=== PATIENT | male | born 1945 | race Two or more races ===

== ENCOUNTER 2021-05-26 11:47 | Emergency (ER) | payer OTHER ==
[~2021-05-26] VITALS: Ht 175.3 cm; Wt 88.0 kg
--- NOTE | 2021-05-26 12:02 | NUR ---
The patient is bibra88, from [facility], c/o low bp 88/48 on scene, IV 250ml NS infused. The patient is alert and oriented x3. In room air and denies SOB. Respiration regular and unlabored. Denies pain. Attached to the monitor. Warm blanket provided for comfort. Will continue to monitor the patient.
[2021-05-26] MEDS ORDERED: CITA40TA11 PO (12:36)
[2021-05-26] MEDS ORDERED: ROSU20TA32 PO (12:36)
[2021-05-26] MEDS ORDERED: LOSA25TA27 PO (12:36)
[2021-05-26] MEDS ORDERED: TRAZ-182 PO (12:36)
[2021-05-26] MEDS ORDERED: CARB1TAB21 PO (12:36)
--- NOTE | 2021-05-26 12:45 | NUR ---
TAKEN TO CT
--- NOTE | 2021-05-26 12:58 | NUR ---
COVID SWAB DONE AND SENT TO THE LAB
--- NOTE | 2021-05-26 12:58 | NUR ---
THE PATIENT IS BACK FROM CT
[2021-05-26 13:25] LABS: BASOPHILS % (AUTO) 0.2 % (0.0-2.0); EOSINOPHILS % (AUTO) 0.2 % (0.0-6.0); HEMATOCRIT 38 % (39-51); HEMOGLOBIN 12.9 g/dL (13.5-17.5); LYMPHOCYTES # (AUTO) 0.9 K/uL (0.8-4.8); MEAN CORPUSCULAR HGB CONC 34 g/dl (31.0-36.0); MEAN CORPUSCULAR VOLUME 92 fL (80-96); MONOCYTES % (AUTO) 6.6 % (2.0-12.0); NEUTROPHILS # (AUTO) 12.8 K/uL (1.8-8.9); PLATELET COUNT (AUTO) 365 K/uL (150-450); RED BLOOD CELL COUNT(AUTO) 4.17 MIL/uL (4.5-6.0); WHITE BLOOD COUNT (AUTO) 14.7 K/uL (4.3-11.0)
[2021-05-26 13:35] LABS: CALCIUM, SERUM 8.4 mg/dL (8.5-10.1); CARBON DIOXIDE 23 mmol/L (21-32); CHLORIDE 106 mmol/L (98-107); CREATININE 1.1 mg/dL (0.6-1.3); GLUCOSE 101 mg/dL (74-106); POTASSIUM 3.7 mmol/L (3.5-5.1); SODIUM SERUM 140 mmol/L (136-145); UREA NITROGEN, BLOOD 18 mg/dL (7-18)
[2021-05-26 13:48] LABS: ALKALINE PHOSPHATASE 85 U/L (46-116); ASPARTATE AMINOTRANSFERASE 13 U/L (15-37); BILIRUBIN,DIRECT 0.1 mg/dL (0.0-0.2); BILIRUBIN,TOTAL 0.4 mg/dL (0.2-1.0); TOTAL PROTEIN, SERUM 6.7 g/dL (6.4-8.2)
[2021-05-26 13:58] LABS: ALANINE AMINOTRANSFERASE 14 U/L (12-78)
--- NOTE | 2021-05-26 13:59 | NUR ---
FAXED CLINICALS TO [facility] [phone]
[2021-05-26] MEDS ORDERED: IV NS 0.9% 1,000 ML BAG IV ONE (14:00)
[2021-05-26] MEDS ORDERED: PIPERACILLIN /TAZOBACTAM 3.375 G in IV D5W 50 ML IV ONE (14:00)
--- NOTE | 2021-05-26 14:20 | NUR ---
DR. HERNÁNDEZ SPEAKING WITH DR. HIRSCH.
--- NOTE | 2021-05-26 14:30 | NUR ---
REFAXED COVID RESULT TO [phone] [facility] [phone]
--- NOTE | 2021-05-26 15:18 | NUR ---
PT ACCEPTED TO [facility] UNDER DR. ALVAREZ AWAITING ROOM
--- NOTE | 2021-05-26 17:21 | NUR ---
[facility] CALLED BACK. PT GOING TO [facility] ACCEPTED UNDER DR. LAURA ALVAREZ ROOM [address] PLEASE CALL [phone] WARD RN FOR REPORT. TRANSPORT IS [facility]. WILL PICKUP AT 2030
--- NOTE | 2021-05-26 18:11 | NUR ---
REPORT GIVEN TO NURSE YEUNG FROM [facility]
[2021-05-26 20:45] VITALS: BP 162/88
--- NOTE | 2021-05-26 21:26 | NUR ---
GAVE REPORT TO EMS
== END 2021-05-26 21:26 | disposition short-term general hospital (02) ==
LOC: ER 11:53
DX: R55 Syncope and collapse (principal); I95.9 Hypotension, unspecified; R79.89 Other specified abnormal findings of blood chemistry; G20 Parkinson's disease; Z86.73 Personal history of transient ischemic attack (TIA), and cerebral infarction without residual deficits; Z20.822 Contact with and (suspected) exposure to COVID-19; Z79.899 Other long term (current) drug therapy; E78.5 Hyperlipidemia, unspecified; I10 Essential (primary) hypertension
CPT/HCPCS: 36415; 70450; 71045; 80048; 80076; 83605 ×2; 83880; 84484; 85025; 85730; 87040 ×2; 87426; 93005; 96361; 96365; 99291; C9803; J2543; J7030 ×2; J7060